=== PATIENT | male | born 1985 | race American Indian/Alaskan Native ===

== ENCOUNTER 2021-06-04 11:29 | Emergency (ER) | payer SELFPAY ==
[2021-06-04 11:47] VITALS: BP 138/78
--- NOTE | 2021-06-04 11:53 | Emergency Department Report ---
HPI - General Chief Complaint: Allergic Reaction Time Seen by Provider: 06/04/21 11:53 - HPI HPI: Patient is a 36-year-old male presents emergency room complaints of bilateral eye irritation that began 4 days ago. He states initially it began in one eye and then spread to the other. Patient states that his son had the same symptoms approximately 2 weeks ago. He denies anything getting into the eye. He states he does wear contact lenses and has them in currently, advised patient to remove them as soon as he leaves the emergency department. He states that he has had crusting, drainage, eyelash matting. He states that occasionally his vision fe els slightly blurry but he is still able to see. No past medical history. No allergies to medications. ED Past Medical Hx - Medications Home Medications: Home Medications Medication Instructions Recorded Confirmed Last Taken Type Ofloxacin 0.3% [Ocuflox 0.3% opth] 1 drops OP DAILY 7 Days #1 bottle 06/04/21 Unknown Rx ED Review of Systems ROS: Stated complaint: PINK EYE/EYE PAIN/BLURRINESS Other details as noted in HPI Comment: All other systems reviewed and negative Physical Exam - Physical Exam Vital Signs: Vital Signs 06/04/21 11:45 Temperature 98.8 F Pulse Rate 82 Respiratory 16 Rate Blood Pressure 138/78 [Left] O2 Sat by Pulse 99 Oximetry General: Non toxic appearing, no acute distress atraumatic, normocephalic conjunctival injection bilaterally with small amount of mucus drainage, PERRL, EOMI, no periorbital edema or ecchymosis moist mucus membranes No respiratory distress, no accessory muscle use A&O x4, normal gait skin is warm, dry, intact ED Course Vital Signs 06/04/21 11:45 Temperature 98.8 F Pulse Rate 82 Respiratory 16 Rate Blood Pressure 138/78 [Left] O2 Sat by Pulse 99 Oximetry ED Medical Decision Making - Medical Decision Making Patient is a 36-year-old male presents emergency room complaints of bilateral eye irritation that began 4 days ago. He states initially it began in one eye and then spread to the other. Patient states that his son had the same symptoms approximately 2 weeks ago. He denies anything getting into the eye. He states he does wear contact lenses and has them in currently, advised patient to remove them as soon as he leaves the emergency department. He states that he has had crusting, drainage, eyelash matting. He states that occasionally his vision feels slightly blurry but he is still able to see. No past medical history. No allergies to medications. Vitals are stable. On exam patient has bilateral conjunctival injection, mild mucus drainage, EOMI, PERRLA. Symptoms and examination appear consistent with conjunctivitis. Patient given prescription for medications and will be covered for Pseudomonas due to contact lens use and discussed with patient the importance of removing contacts while infection is present. advised pt Please use medication as prescribed. Wash hands frequently. Avoid rubbing the eyes. Do not wear your contact lens use, please wear eyeglasses until infection has completely cleared. Follow-up with hoop machine operator if symptoms or not improving. Return to emergency room for any new or worsening symptoms. Critical care attestation.: If time is entered above; I have spent that time in minutes in the direct care of this critically ill patient, excluding procedure time. ED Disposition Clinical Impression: Conjunctivitis Qualifiers: Conjunctivitis type: acute Acute conjunctivitis type: unspecified Laterality: bilateral Qualified Code(s): H10.33 - Unspecified acute conjunctivitis, bilateral Disposition: 01 HOME / SELF CARE / HOMELESS Is pt being admited?: No Does the pt Need Aspirin: No Condition: Stable Instructions: Viral Conjunctivitis, Adult, Viral Conjunctivitis, Pediatric, How to Use Eye Drops and Eye Ointments Additional Instructions: Please use medication as prescribed. Wash hands frequently. Avoid rubbing the eyes. Do not wear your contact lens use, please wear eyeglasses until infection has completely cleared. Follow-up with hoop machine operator if symptoms or not improving. Return to emergency room for any new or worsening symptoms. Prescriptions: Ofloxacin 0.3% [Ocuflox 0.3% opth] 1 drops OP DAILY 7 Days #1 bottle Referrals: [facility] [Provider Group] - 3-5 Days ANDRY MARIANO MD [Staff Physician] - 3-5 Days Time of Disposition: 11:56 Print Language: BULGARIAN
== END 2021-06-04 12:13 | disposition home or self-care (01) ==
LOC: ED 11:29
DX: H10.9 Unspecified conjunctivitis (principal)
CPT/HCPCS: 99281